=== PATIENT | male | born 1995 | race American Indian/Alaskan Native ===

== ENCOUNTER 2020-12-13 14:33 | Emergency (ER) | payer SELFPAY ==
[2020-12-13 14:59] VITALS: BP 143/72
--- NOTE | 2020-12-13 15:29 | Emergency Department Report ---
Chief Complaint: Extremity Injury, Upper Stated Complaint: PAIN AND SWELLING IN BOTH HANDS Time Seen by Provider: 12/13/20 15:23 - Exam Vital Signs: Vital Signs 12/13/20 14:55 Temperature 98.7 F Pulse Rate 67 Respiratory 18 Rate Blood Pressure 143/72 O2 Sat by Pulse 100 Oximetry MSE screening note: Focused history and physical exam performed. Due to findings the following was ordered: ED Disposition for MSE Disposition: MED SCREENING EXAM-LEFT Is pt being admited?: No Does the pt Need Aspirin: No Condition: Stable Additional Instructions: Recommend Tylenol or Ibuprofen for pain. Recommend F/U with a primary care provider. Referrals: [facility] [Provider Group] - 3-5 Days Forms: Work/School Release Form(ED)
== END 2020-12-13 16:37 | disposition left against medical advice (07) ==
LOC: ED 14:33
DX: M79.89 Other specified soft tissue disorders (principal); Z53.21 Procedure and treatment not carried out due to patient leaving prior to being seen by health care provider